=== PATIENT | male | born 1960 | race African-American/Black ===

== ENCOUNTER 2017-08-11 12:13 | Emergency (ER) | payer BC, MEDICAID ==
[~2017-08-11] VITALS: Ht 167.6 cm; Wt 67.0 kg
[2017-08-11] MEDS ORDERED: BACITRACIN ZINC OINT UDPKT TOP ONE (12:45)
[2017-08-11] MEDS ORDERED: LIDOCAINE HCL 1%/EPI 1:200,000 30 ML VIAL MC ONE (12:45)
[2017-08-11 13:57] VITALS: BP 132/64
[2017-08-14] MEDS ORDERED: NARCO (00:18)
== END 2017-08-11 14:54 | disposition home or self-care (01) ==
LOC: ER 14:27
DX: L76.21 Postprocedural hemorrhage of skin and subcutaneous tissue following a dermatologic procedure (principal); F17.200 Nicotine dependence, unspecified, uncomplicated
CPT/HCPCS: 99283; Z7610

== ENCOUNTER 2021-01-07 21:14 | Emergency (ER) | payer MEDICAID ==
[~2021-01-07] VITALS: Ht 175.3 cm; Wt 68.0 kg
[2021-01-07] MEDS ORDERED: LIDOCAINE HCL/EPINEPHRINE 1%-EPI 1:100,000 20 ML VIAL INFIL ONE (22:30)
[2021-01-07 23:40] LABS: BASOPHILS % 0.6 % (0.0-2.0); EOSINOPHILS % 0.8 % (0.0-5.0); LYMPHOCYTES % 24.6 % (20.0-50.0); MEAN CORPUSCULAR HEMOGLOBIN 28.4 pg (28.0-32.0); MEAN CORPUSCULAR VOLUME 85.7 fL (80.0-94.0); MEAN PLATELET VOLUME 6.7 fl (7.4-10.4); MONOCYTES % 11.1 % (2.0-8.0); NEUTROPHILS % 62.9 % (40.0-76.0); PLATELET 310 x1000/uL (130-400); RED BLOOD CELL COUNT 1.81 mill/uL (4.7-6.1); RED CELL DISTRIBUTION WIDTH 23.5 % (11.6-14.6)
[2021-01-07 23:57] LABS: HEMATOCRIT. 15.5 % (42.0-52.0); HEMOGLOBIN. 5.1 g/dL (14.0-18.0)
[2021-01-08 00:46] VITALS: BP 100/72
== END 2021-01-08 00:48 | disposition left against medical advice (07) ==
LOC: ER 21:14
DX: S01.511A Laceration without foreign body of lip, initial encounter (principal); D64.89 Other specified anemias; W25.XXXA Contact with sharp glass, initial encounter; Y93.89 Activity, other specified; Y92.89 Other specified places as the place of occurrence of the external cause
CPT/HCPCS: 12011; 36415; 85025; 99283; J3490; Z7610

== ENCOUNTER 2021-07-17 22:55 | Inpatient (IN) | payer OTHER ==
[~2021-07-17] VITALS: Ht 172.7 cm; Wt 42.4 kg
[~2021-07-17 22:55] MED LIST: FAMO40TA7 MT; HYDR-4009 MT; MORP60TA6 MT
[2021-07-17] MEDS ORDERED: SODIUM CHLORIDE 0.9% 1,000 ML IV ONE (23:15)
[2021-07-18 00:41] LABS: MEAN CORPUSCULAR HEMOGLOBIN 27.5 pg (28.0-32.0); MEAN CORPUSCULAR VOLUME 85.2 fL (80.0-94.0); MEAN PLATELET VOLUME 7.3 fl (7.4-10.4); PLATELET 195 x1000/uL (130-400); RED CELL DISTRIBUTION WIDTH 21.4 % (11.6-14.6)
[2021-07-18 00:49] LABS: HEMATOCRIT. 14.5 % (42.0-52.0)
[2021-07-18 00:50] LABS: HEMOGLOBIN. 4.7 g/dL (14.0-18.0)
[2021-07-18] MEDS ORDERED: LORAZEPAM 2MG/ML CPJ IV SCH (02:15)
[2021-07-18 06:07] LABS: BG BASE EXCESS 2.1 mmol/L (-2.0-2.0); BG CARBOXYHEMOGLOBIN 1.9 % (0.5-1.5); BG DEOXYHEMOGLOBIN 3.5 % (0.0-5.0); BG FRACTION INSPIRED OXYGEN 21; BG HCO3 ACT 26.6 mmol/L (22.0-26.0); BG METHEMOGLOBIN 0.3 % (0.0-1.5); BG OXYGEN SATURATION 96.4 % (92.0-98.5); BG OXYHEMOGLOBIN 94.3 % (94.0-97.0); BG PCO2 41.2 mmHg (35.0-45.0); BG PH 7.428 (7.350-7.450); BG PO2 90.3 mmHg (75.0-100.0); BG SAMPLE SITE RIGHT RADIAL; BG TOTAL HEMOGLOBIN 5.9 g/dL (12.0-18.0); BG VENT MODE ROOM AIR
[2021-07-18] MEDS ORDERED: ONDANSETRON HCL 4MG/2ML INJ IV PRN (08:45)
[2021-07-18 09:25] LABS: CLARITY URINE CLEAR (CLEAR); COLOR URINE YELLOW (YELLOW); KETONES URINE NEGATIVE (NEGATIVE); LEUKOCYTE ESTERASE URINE 2+ (NEGATIVE); NITRITE URINE NEGATIVE (NEGATIVE); OCCULT BLOOD URINE TRACE (NEGATIVE); PROTEIN URINE TRACE (NEGATIVE); SPECIFIC GRAVITY URINE 1.009 (1.005-1.030); UROBILINOGEN URINE 0.2 E.U./dL (0.2-1.0)
[2021-07-18 09:37] LABS: CHLORIDE 103 mEq/L (98-107)
[2021-07-18] MEDS: AMLODIPINE 10MG TABLET PO SCH (09:39)
[2021-07-18] MEDS: CLONIDINE 0.2MG TABLET PO PRN (09:40)
[2021-07-18 09:42] LABS: ETHANOL BLOOD < 10 mg/dL
[2021-07-18 09:48] LABS: HEMATOCRIT 17.5 % (42.0-52.0); HEMOGLOBIN 5.7 g/dL (14.0-18.0)
[2021-07-18 10:01] LABS: PLATELET ESTIMATE NORMAL
[2021-07-18 10:10] LABS: *AMPHETAMINES SCREEN URINE NEGATIVE (NEGATIVE); *BARBITURATES SCREEN URINE NEGATIVE (NEGATIVE); *BENZODIAZEPINES SCREEN URINE NEGATIVE (NEGATIVE); *COCAINE SCREEN URINE NEGATIVE (NEGATIVE)
[2021-07-18 10:11] LABS: CANNABINOID URINE SCREEN NEGATIVE (NEGATIVE); METHADONE URINE SCREEN NEGATIVE (NEGATIVE); OPIATES URINE SCREEN PRESUMTIVE POSITIVE (NEGATIVE); PHENCYCLIDINE URINE SCREEN NEGATIVE (NEGATIVE)
[2021-07-18 10:35] VITALS: BP 163/86
[2021-07-18] MEDS ORDERED: CEFTRIAXONE 1 G PREMIX 50 ML IV SCH (11:00)
[2021-07-18 12:00] VITALS: BP 163/86
[2021-07-18 13:45] LABS: HEMATOCRIT 17.1 % (42.0-52.0); HEMOGLOBIN 5.6 g/dL (14.0-18.0)
[2021-07-18] MEDS: SODIUM CHLORIDE 0.9% 1,000 ML IV SCH (15:08)
[2021-07-18 16:00] VITALS: BP 148/79
[2021-07-18] MEDS: CEFTRIAXONE 1,000 MG in DEXTROSE 5% WATER 50 ML IV SCH (16:44)
[2021-07-18] MEDS ORDERED: MORPHINE SULFATE 4 MG/ML CPJ (NOT FOR IM USE) IV PRN (17:00)
[2021-07-18] MEDS ORDERED: NALOXONE HCL 0.4MG/ML VIAL IV PRN (18:30)
[2021-07-18 20:00] VITALS: BP 137/53
[2021-07-18 23:07] VITALS: BP 151/78
[2021-07-18 23:22] VITALS: BP 141/80
[2021-07-19] VITALS (16 sets, daily range): BP systolic 130–169; BP diastolic 48–91
[2021-07-19] MEDS: MORPHINE SULFATE 2 MG/ML CPJ (NOT FOR IM USE) IV PRN ×4 (00:50→22:59)
[2021-07-19] MEDS: CLONIDINE 0.2MG TABLET PO PRN (05:38)
[2021-07-19 07:21] LABS: MEAN CORPUSCULAR HEMOGLOBIN 27.1 pg (28.0-32.0); MEAN CORPUSCULAR VOLUME 80.8 fL (80.0-94.0); MEAN PLATELET VOLUME 7.5 fl (7.4-10.4); PLATELET 222 x1000/uL (130-400); RED BLOOD CELL COUNT 2.37 mill/uL (4.7-6.1); RED CELL DISTRIBUTION WIDTH 22.7 % (11.6-14.6)
[2021-07-19] MEDS: AMLODIPINE 10MG TABLET PO SCH (08:16)
[2021-07-19] MEDS: SODIUM CHLORIDE 0.9% 1,000 ML IV SCH (08:26)
[2021-07-19 08:47] LABS: HEMATOCRIT. 19.2 % (42.0-52.0); HEMOGLOBIN. 6.4 g/dL (14.0-18.0)
[2021-07-19 12:12] LABS: PLATELET ESTIMATE NORMAL
[2021-07-19] MEDS: CEFTRIAXONE 1,000 MG in DEXTROSE 5% WATER 50 ML IV SCH (17:25)
[2021-07-19 17:28] LABS: HEMATOCRIT 19.8 % (42.0-52.0); HEMOGLOBIN 6.6 g/dL (14.0-18.0)
[2021-07-20] VITALS (7 sets, daily range): BP systolic 121–154; BP diastolic 47–93
[2021-07-20] MEDS: MORPHINE SULFATE 2 MG/ML CPJ (NOT FOR IM USE) IV PRN ×3 (05:20→14:32)
[2021-07-20] MEDS: AMLODIPINE 10MG TABLET PO SCH (09:37)
[2021-07-20 10:37] LABS: HEMATOCRIT 23.6 % (42.0-52.0)
[2021-07-20 10:39] LABS: HEMOGLOBIN 7.9 g/dL (14.0-18.0)
[2021-07-20] MEDS: ACETAMINOPHEN 325MG TABLET PO PRN (22:17)
[2021-07-20] MEDS: SODIUM CHLORIDE 0.9% 1,000 ML IV SCH (22:20)
[2021-07-21] VITALS: BP 138/88
[2021-07-21 04:00] VITALS: BP 144/97
[2021-07-21] MEDS: ACETAMINOPHEN 325MG TABLET PO PRN ×2 (06:13→16:42)
[2021-07-21 08:00] VITALS: BP 156/97
[2021-07-21] MEDS: AMLODIPINE 10MG TABLET PO SCH (09:57)
[2021-07-21 11:59] VITALS: BP 95/68
[2021-07-21 16:00] VITALS: BP 140/90
[2021-07-21] MEDS: CEFTRIAXONE 1,000 MG in DEXTROSE 5% WATER 50 ML IV SCH (16:42)
[2021-07-21] MEDS: SODIUM CHLORIDE 0.9% 1,000 ML IV SCH (19:16)
[2021-07-21 20:00] VITALS: BP 113/65
[2021-07-22] VITALS: BP 154/88
[2021-07-22 04:00] VITALS: BP 144/69
[2021-07-22 08:00] VITALS: BP 102/46
[2021-07-22] MEDS: AMLODIPINE 10MG TABLET PO SCH ×2 (08:59→09:00)
[2021-07-22 12:00] VITALS: BP 128/70
[2021-07-22] MEDS: SODIUM CHLORIDE 0.9% 1,000 ML IV SCH (14:43)
[2021-07-22] MEDS: CEFTRIAXONE 1,000 MG in DEXTROSE 5% WATER 50 ML IV SCH (15:28)
[2021-07-22 16:00] VITALS: BP 125/70
[2021-07-22 20:00] VITALS: BP 156/80
[2021-07-23] VITALS: BP 149/83
[2021-07-23 04:00] VITALS: BP 154/87
[2021-07-23 08:00] VITALS: BP 159/81
[2021-07-23] MEDS: AMLODIPINE 10MG TABLET PO SCH (08:42)
[2021-07-23 12:00] VITALS: BP 152/88
[2021-07-23 16:00] VITALS: BP 141/85
[2021-07-23] MEDS: CEFTRIAXONE 1,000 MG in DEXTROSE 5% WATER 50 ML IV SCH (17:03)
[2021-07-23] MEDS: LORAZEPAM 2MG/ML CPJ IV PRN (17:07)
[2021-07-23 20:00] VITALS: BP 136/66
[2021-07-24] VITALS: BP 138/76
[2021-07-24 04:00] VITALS: BP 139/93
[2021-07-24 08:00] VITALS: BP 142/90
[2021-07-24] MEDS: LORAZEPAM 2MG/ML CPJ IV PRN (08:21)
[2021-07-24] MEDS: AMLODIPINE 10MG TABLET PO SCH (09:00)
[2021-07-24 12:00] VITALS: BP 137/87
[2021-07-24 16:00] VITALS: BP 152/84
[2021-07-24 20:00] VITALS: BP 148/86
[2021-07-25 00:01] VITALS: BP 152/79
[2021-07-25] MEDS: LORAZEPAM 2MG/ML CPJ IV PRN (03:08)
[2021-07-25 04:00] VITALS: BP 157/91
[2021-07-25 08:00] VITALS: BP 153/91
[2021-07-25] MEDS: AMLODIPINE 10MG TABLET PO SCH (09:48)
[2021-07-25 12:00] VITALS: BP 112/59
[2021-07-25 16:00] VITALS: BP 126/60
[2021-07-25 17:03] LABS: MEAN CORPUSCULAR HEMOGLOBIN 28.1 pg (28.0-32.0); MEAN CORPUSCULAR VOLUME 80.4 fL (80.0-94.0); MEAN PLATELET VOLUME 7.2 fl (7.4-10.4); PLATELET 211 x1000/uL (130-400); RED BLOOD CELL COUNT 2.13 mill/uL (4.7-6.1); RED CELL DISTRIBUTION WIDTH 19.5 % (11.6-14.6)
[2021-07-25 17:08] LABS: CHLORIDE 108 mEq/L (98-107)
[2021-07-25 17:16] LABS: HEMATOCRIT. 17.2 % (42.0-52.0)
[2021-07-25] MEDS ORDERED: POTASSIUM CHLORIDE INJ 40 MEQ in DEXT 5% WATER 250 ML IV ONE (18:30)
[2021-07-25 18:52] LABS: PLATELET ESTIMATE NORMAL
[2021-07-25] MEDS ORDERED: POTASSIUM CHLORIDE 20MEQ TABLET SR PO NR (19:00)
[2021-07-25 20:00] VITALS: BP 117/55
[2021-07-25] MEDS: KCL 20MEQ/100ML X 2 FOR TOTAL KCL 40MEQ/200ML IV SCH (21:36)
[2021-07-26] VITALS (13 sets, daily range): BP systolic 99–139; BP diastolic 53–86
[2021-07-26] MEDS: KCL 20MEQ/100ML X 2 FOR TOTAL KCL 40MEQ/200ML IV SCH (02:01)
[2021-07-26] MEDS: AMLODIPINE 10MG TABLET PO SCH (09:00)
[2021-07-26 10:25] LABS: BASOPHILS % 0.3 % (0.0-2.0); EOSINOPHILS % 0.4 % (0.0-5.0); LYMPHOCYTES % 22.2 % (20.0-50.0); MEAN CORPUSCULAR VOLUME 85.5 fL (80.0-94.0); MEAN PLATELET VOLUME 7.2 fl (7.4-10.4); MONOCYTES % 8.6 % (2.0-8.0); NEUTROPHILS % 68.5 % (40.0-76.0); PLATELET 213 x1000/uL (130-400); RED CELL DISTRIBUTION WIDTH 20.8 % (11.6-14.6)
[2021-07-26 10:33] LABS: HEMOGLOBIN. 6.3 g/dL (14.0-18.0)
[2021-07-26] MEDS ORDERED: POTASSIUM CHLORIDE 20MEQ TABLET SR PO NR (11:30)
[2021-07-26] MEDS: METOPROLOL TARTRATE 50MG TABLET PO SCH ×2 (12:29→21:12)
[2021-07-26] MEDS: SODIUM CHLORIDE 0.9% 1,000 ML IV SCH (19:04)
[2021-07-27] VITALS (11 sets, daily range): BP systolic 128–146; BP diastolic 68–87
[2021-07-27] MEDS: SODIUM CHLORIDE 0.9% 1,000 ML IV SCH ×2 (05:18→14:45)
[2021-07-27 07:08] LABS: BASOPHILS % 0.2 % (0.0-2.0); EOSINOPHILS % 0.3 % (0.0-5.0); LYMPHOCYTES % 23.9 % (20.0-50.0); MEAN CORPUSCULAR HEMOGLOBIN 29.2 pg (28.0-32.0); MEAN CORPUSCULAR VOLUME 84.7 fL (80.0-94.0); MEAN PLATELET VOLUME 7.3 fl (7.4-10.4); MONOCYTES % 8.3 % (2.0-8.0); NEUTROPHILS % 67.3 % (40.0-76.0); PLATELET 233 x1000/uL (130-400); RED BLOOD CELL COUNT 2.26 mill/uL (4.7-6.1); RED CELL DISTRIBUTION WIDTH 19.9 % (11.6-14.6)
[2021-07-27 07:10] LABS: INR 1.4; PARTIAL THROMBOPLASTIN TIME 31.3 sec (23.4-31.0); PROTHROMBIN TIME 14.7 sec (9.6-11.0)
[2021-07-27 07:52] LABS: HEMATOCRIT. 19.1 % (42.0-52.0); HEMOGLOBIN. 6.6 g/dL (14.0-18.0)
[2021-07-27] MEDS: ACETAMINOPHEN 325MG TABLET PO PRN ×2 (09:46→12:21)
[2021-07-27] MEDS: METOPROLOL TARTRATE 50MG TABLET PO SCH ×2 (09:47→21:04)
[2021-07-27] MEDS: AMLODIPINE 10MG TABLET PO SCH (09:48)
== END 2021-07-27 21:36 | disposition hospice, home (50) | DRG 663 ==
LOC: ER 22:55 → EDBEDREQSVC 07-18 04:15 → EDBEDREQTM 07-18 04:15 → EDBEDREQDT 07-18 04:15 → EDBEDREQ 07-18 04:15 → ENRESERV 07-18 09:05 → 7EST 07-18 10:32
PROVIDERS: ADMIT Internal Medicine; ATTEND Internal Medicine
PROC: 30233N1 Transfusion of Nonautologous Red Blood Cells into Peripheral Vein, Percutaneous Approach (ICD-10-PCS; principal; 2021-07-18)
DX: D64.9 Anemia, unspecified (principal); N17.0 Acute kidney failure with tubular necrosis; E43 Unspecified severe protein-calorie malnutrition; C90.00 Multiple myeloma not having achieved remission; E87.1 Hypo-osmolality and hyponatremia; S20.219A Contusion of unspecified front wall of thorax, initial encounter; I10 Essential (primary) hypertension; N39.0 Urinary tract infection, site not specified; X58.XXXA Exposure to other specified factors, initial encounter; Y92.238 Other place in hospital as the place of occurrence of the external cause; Y93.89 Activity, other specified; Y99.8 Other external cause status; Z68.1 Body mass index [BMI] 19.9 or less, adult
CPT/HCPCS: 36415; 36600; 71045; 80048; 80053; 80305; 80320; 81003; 82375; 82805; 83605; 83735; 84484; 85014; 85018; 85025; 86850; 86900; 86920; 93970; 99291; J0696; J2060; J2270; J2405; J3480; J7030; J7060; P9016; G0480

== ENCOUNTER 2022-04-10 20:35 | Inpatient (IN) | payer OTHER ==
[~2022-04-10] VITALS: Ht 188 cm; Wt 47.8 kg
[2022-04-10] MEDS ORDERED: PIPERACILLIN/TAZ 3.375G PREMIX 50 ML IV ONE (21:15)
[2022-04-10] MEDS ORDERED: SODIUM CHLORIDE 0.9% 1000ML BAG (SEPSIS BOLUS) IV ONE (21:15)
[2022-04-10] MEDS ORDERED: VANCOMYCIN 1G PREMIX 200 ML IV ONE (21:15)
[2022-04-10] MEDS ORDERED: NOREPINEPHRINE 8MG/250ML PMX 250 ML IV STA (21:49)
[2022-04-10 21:53] LABS: CHLORIDE 105 mEq/L (98-107)
[2022-04-10] MEDS ORDERED: NOREPINEPHRINE 8 MG in DEXTROSE 5% WATER 250 ML IV PRN (22:00)
[2022-04-10 22:06] LABS: MEAN CORPUSCULAR HEMOGLOBIN 29.5 pg (28.0-32.0); MEAN CORPUSCULAR VOLUME 111.4 fL (80.0-94.0); PLATELET 368 x1000/uL (130-400); RED BLOOD CELL COUNT 0.96 mill/uL (4.7-6.1); RED CELL DISTRIBUTION WIDTH 23.9 % (11.6-14.6)
[2022-04-10 22:14] LABS: HEMATOCRIT. 10.7 % (42.0-52.0); HEMOGLOBIN. 2.8 g/dL (14.0-18.0)
[2022-04-11 02:46] LABS: PLATELET ESTIMATE NORMAL
[2022-04-11 04:14] LABS: HEMOGLOBIN 4.3 g/dL (14.0-18.0)
[2022-04-11 04:15] LABS: HEMATOCRIT 13.4 % (42.0-52.0)
[2022-04-11 12:11] LABS: BG BASE EXCESS -6.1 mmol/L (-2.0-2.0); BG CARBOXYHEMOGLOBIN 0.3 % (0.5-1.5); BG DEOXYHEMOGLOBIN 2.2 % (0.0-5.0); BG FRACTION INSPIRED OXYGEN 21; BG HCO3 ACT 17.5 mmol/L (22.0-26.0); BG METHEMOGLOBIN 0.3 % (0.0-1.5); BG OXYGEN SATURATION 97.8 % (92.0-98.5); BG OXYHEMOGLOBIN 97.2 % (94.0-97.0); BG PCO2 28.3 mmHg (35.0-45.0); BG PO2 103.7 mmHg (75.0-100.0); BG SAMPLE SITE RIGHT RADIAL; BG TOTAL HEMOGLOBIN 9.9 g/dL (12.0-18.0); BG VENT MODE ROOM AIR
[2022-04-11 13:38] LABS: BASOPHILS % 0.1 % (0.0-2.0); HEMATOCRIT. 25.9 % (42.0-52.0); HEMOGLOBIN. 8.8 g/dL (14.0-18.0); LYMPHOCYTES % 13.4 % (20.0-50.0); MEAN CORPUSCULAR VOLUME 91.5 fL (80.0-94.0); MEAN PLATELET VOLUME 6.7 fl (7.4-10.4); MONOCYTES % 6.9 % (2.0-8.0); NEUTROPHILS % 79.6 % (40.0-76.0); PLATELET 192 x1000/uL (130-400); RED BLOOD CELL COUNT 2.83 mill/uL (4.7-6.1); RED CELL DISTRIBUTION WIDTH 14.7 % (11.6-14.6)
[2022-04-11 13:48] LABS: INR 1.5; PARTIAL THROMBOPLASTIN TIME 52.1 sec (23.4-31.0); PROTHROMBIN TIME 15.2 sec (9.6-11.0)
[2022-04-11 13:54] LABS: CHLORIDE 112 mEq/L (98-107)
[2022-04-11 14:02] LABS: PHOSPHORUS 4.4 mg/dL (2.5-4.9)
[2022-04-11] MEDS: DEXT 5%/0.45% NACL 1000ML 1,000 ML IV SCH (17:22)
[2022-04-11] MEDS ORDERED: IOHEXOL-350 100 ML BOTTLE ONE (19:29)
[2022-04-11] MEDS ORDERED: THROMBIN (BOVINE) 5000 UNITS/VIAL TOP ONE (20:30)
[2022-04-11] MEDS: VASOPRESSIN 20 UNITS in SODIUM CHLORIDE 0.9% 100 ML IV PRN (20:58)
[2022-04-11] MEDS ORDERED: THROMBIN (BOVINE) 5000 UNITS/VIAL TOP NR (21:00)
[2022-04-11] MEDS ORDERED: LIDOCAINE HCL 1% 10 MG/ML 10ML VIAL ONE (21:00)
[2022-04-11] MEDS: MORPHINE SULFATE 2 MG/ML CPJ (NOT FOR IM USE) IV PRN (23:10)
[2022-04-12] VITALS (28 sets, daily range): BP systolic 91–136; BP diastolic 23–97
[2022-04-12 00:20] LABS: HEMOGLOBIN 6.8 g/dL (14.0-18.0)
[2022-04-12 00:21] LABS: HEMATOCRIT 20.5 % (42.0-52.0)
[2022-04-12] MEDS: PHENYLEPHRINE 100 MG in DEXT 5% WATER 240 ML IV PRN ×2 (03:20→15:44)
[2022-04-12 03:34] LABS: CLARITY URINE CLEAR (CLEAR); COLOR URINE YELLOW (YELLOW); KETONES URINE NEGATIVE (NEGATIVE); LEUKOCYTE ESTERASE URINE 1+ (NEGATIVE); NITRITE URINE NEGATIVE (NEGATIVE); OCCULT BLOOD URINE TRACE (NEGATIVE); PH URINE 5.5 (4.5-8.0); PROTEIN URINE NEGATIVE (NEGATIVE); UROBILINOGEN URINE 0.2 E.U./dL (0.2-1.0)
[2022-04-12] MEDS: MORPHINE SULFATE 2 MG/ML CPJ (NOT FOR IM USE) IV PRN ×2 (03:47→20:00)
[2022-04-12 03:51] LABS: HEMOGLOBIN 5.1 g/dL (14.0-18.0)
[2022-04-12 03:52] LABS: HEMATOCRIT 15.6 % (42.0-52.0)
[2022-04-12 03:55] LABS: *AMPHETAMINES SCREEN URINE NEGATIVE (NEGATIVE); *BARBITURATES SCREEN URINE NEGATIVE (NEGATIVE); *BENZODIAZEPINES SCREEN URINE NEGATIVE (NEGATIVE); *COCAINE SCREEN URINE NEGATIVE (NEGATIVE); CANNABINOID URINE SCREEN PRESUMTIVE POSITIVE (NEGATIVE); METHADONE URINE SCREEN PRESUMTIVE POSITIVE (NEGATIVE); OPIATES URINE SCREEN PRESUMTIVE POSITIVE (NEGATIVE); PHENCYCLIDINE URINE SCREEN NEGATIVE (NEGATIVE)
[2022-04-12] MEDS: DEXT 5%/0.45% NACL 1000ML 1,000 ML IV SCH ×2 (06:20→19:40)
[2022-04-12 08:57] LABS: CHLORIDE 109 mEq/L (98-107)
[2022-04-12] MEDS ORDERED: CEFTRIAXONE 1 G PREMIX 50 ML IV SCH (09:00)
[2022-04-12 09:02] LABS: INR 1.4; PROTHROMBIN TIME 14.6 sec (9.6-11.0)
[2022-04-12 09:06] LABS: BASOPHILS % 0.2 % (0.0-2.0); EOSINOPHILS % 0.1 % (0.0-5.0); LYMPHOCYTES % 12.7 % (20.0-50.0); MEAN CORPUSCULAR HEMOGLOBIN 30.6 pg (28.0-32.0); MEAN CORPUSCULAR VOLUME 91.1 fL (80.0-94.0); MEAN PLATELET VOLUME 7.7 fl (7.4-10.4); MONOCYTES % 8.5 % (2.0-8.0); NEUTROPHILS % 78.5 % (40.0-76.0); PLATELET 133 x1000/uL (130-400); RED BLOOD CELL COUNT 1.83 mill/uL (4.7-6.1); RED CELL DISTRIBUTION WIDTH 14.6 % (11.6-14.6)
[2022-04-12 09:09] LABS: HEMATOCRIT. 16.7 % (42.0-52.0); HEMOGLOBIN. 5.6 g/dL (14.0-18.0)
[2022-04-12] MEDS ORDERED: IOHEXOL-300 100 ML BOTTLE ONE ×2 (09:51→12:03)
[2022-04-12] MEDS ORDERED: LIDOCAINE HCL 1% 10 MG/ML 10ML VIAL ONE (09:51)
[2022-04-12] MEDS ORDERED: MIDAZOLAM HCL 5 MG/5 ML VIAL ONE (10:19)
[2022-04-12] MEDS ORDERED: FENTANYL CITRATE/PF 50MCG/ML 2ML VIAL ONE (10:19)
[2022-04-12] MEDS ORDERED: KETAMINE HCL 50 MG/ML 10ML IV NR (10:30)
[2022-04-12] MEDS ORDERED: PHENYLEPHRINE HCL 10 MG/ML 1ML (IV VIAL) IV ONE (10:30)
[2022-04-12] MEDS ORDERED: DIPHENHYDRAMINE 50MG/ML VIAL ONE (11:01)
[2022-04-12] MEDS ORDERED: DOPAMINE 400MG/250ML PREMIX 250 ML IV PRN (16:15)
[2022-04-12] MEDS ORDERED: ATROPINE SULFATE 1MG/ML VIAL IV PRN (16:15)
[2022-04-12 16:23] LABS: HEMATOCRIT 24.5 % (42.0-52.0); HEMOGLOBIN 8.1 g/dL (14.0-18.0)
[2022-04-12] MEDS ORDERED: NALOXONE HCL 0.4MG/ML VIAL IV PRN (16:30)
[2022-04-12] MEDS: VASOPRESSIN 20 UNITS in SODIUM CHLORIDE 0.9% 100 ML IV PRN (19:30)
[2022-04-13] VITALS (61 sets, daily range): BP systolic 60–154; BP diastolic 38–82
[2022-04-13] MEDS: MORPHINE SULFATE 2 MG/ML CPJ (NOT FOR IM USE) IV PRN ×2 (00:56→08:27)
[2022-04-13] MEDS: VASOPRESSIN 20 UNITS in SODIUM CHLORIDE 0.9% 100 ML IV PRN ×2 (02:46→15:16)
[2022-04-13] MEDS: PHENYLEPHRINE 100 MG in DEXT 5% WATER 240 ML IV PRN ×2 (02:46→15:16)
[2022-04-13] MEDS: CEFTRIAXONE 1,000 MG in DEXTROSE 5% WATER 50 ML IV SCH (05:03)
[2022-04-13 05:39] LABS: BASOPHILS % 0.3 % (0.0-2.0); EOSINOPHILS % 0.2 % (0.0-5.0); LYMPHOCYTES % 10.1 % (20.0-50.0); MEAN CORPUSCULAR HEMOGLOBIN 29.8 pg (28.0-32.0); MEAN CORPUSCULAR VOLUME 87.8 fL (80.0-94.0); MEAN PLATELET VOLUME 7.4 fl (7.4-10.4); MONOCYTES % 6.6 % (2.0-8.0); NEUTROPHILS % 82.8 % (40.0-76.0); PLATELET 97 x1000/uL (130-400); RED BLOOD CELL COUNT 2.26 mill/uL (4.7-6.1); RED CELL DISTRIBUTION WIDTH 18.2 % (11.6-14.6)
[2022-04-13 05:56] LABS: CHLORIDE 110 mEq/L (98-107)
[2022-04-13 06:29] LABS: HEMOGLOBIN. 6.7 g/dL (14.0-18.0)
[2022-04-13 06:30] LABS: HEMATOCRIT. 19.9 % (42.0-52.0)
[2022-04-13] MEDS: DEXT 5%/0.45% NACL 1000ML 1,000 ML IV SCH ×2 (09:00→21:04)
[2022-04-13] MEDS: MIDODRINE HCL 5MG TABLET PO SCH ×3 (11:15→17:00)
[2022-04-13] MEDS: METHADONE HCL 5MG TABLET PO SCH ×2 (13:00→21:03)
[2022-04-13] MEDS: MORPHINE SULFATE 10MG/5ML ORAL SOLN UDC PO PRN ×2 (14:42→22:20)
[2022-04-13 20:45] LABS: BASOPHILS % 0.2 % (0.0-2.0); EOSINOPHILS % 0.5 % (0.0-5.0); HEMATOCRIT. 21.7 % (42.0-52.0); HEMOGLOBIN. 7.4 g/dL (14.0-18.0); LYMPHOCYTES % 11.4 % (20.0-50.0); MEAN CORPUSCULAR HEMOGLOBIN 30.2 pg (28.0-32.0); MEAN CORPUSCULAR VOLUME 88.3 fL (80.0-94.0); MEAN PLATELET VOLUME 7.1 fl (7.4-10.4); MONOCYTES % 5.4 % (2.0-8.0); NEUTROPHILS % 82.5 % (40.0-76.0); PLATELET 101 x1000/uL (130-400); RED BLOOD CELL COUNT 2.46 mill/uL (4.7-6.1); RED CELL DISTRIBUTION WIDTH 17.1 % (11.6-14.6)
[2022-04-14] VITALS (91 sets, daily range): BP systolic 78–162; BP diastolic 27–110
[2022-04-14] MEDS: CEFTRIAXONE 1,000 MG in DEXTROSE 5% WATER 50 ML IV SCH (05:07)
[2022-04-14 06:04] LABS: CHLORIDE 107 mEq/L (98-107)
[2022-04-14 07:20] LABS: BASOPHILS % 0.1 % (0.0-2.0); EOSINOPHILS % 0.3 % (0.0-5.0); HEMATOCRIT. 25.2 % (42.0-52.0); HEMOGLOBIN. 8.6 g/dL (14.0-18.0); LYMPHOCYTES % 8.4 % (20.0-50.0); MEAN CORPUSCULAR HEMOGLOBIN 30.6 pg (28.0-32.0); MEAN CORPUSCULAR VOLUME 89.5 fL (80.0-94.0); MEAN PLATELET VOLUME 7.6 fl (7.4-10.4); MONOCYTES % 5.7 % (2.0-8.0); NEUTROPHILS % 85.5 % (40.0-76.0); PLATELET 116 x1000/uL (130-400); RED BLOOD CELL COUNT 2.81 mill/uL (4.7-6.1); RED CELL DISTRIBUTION WIDTH 17.3 % (11.6-14.6)
[2022-04-14] MEDS: METHADONE HCL 5MG TABLET PO SCH ×2 (09:46→21:25)
[2022-04-14] MEDS: MIDODRINE HCL 5MG TABLET PO SCH ×4 (09:47→21:26)
[2022-04-14] MEDS: DEXT 5%/0.45% NACL 1000ML 1,000 ML IV SCH (12:49)
[2022-04-14] MEDS: AZITHROMYCIN 500 MG in DEXT 5% WATER 250 ML IV SCH (13:25)
[2022-04-14] MEDS: PHENYLEPHRINE 100 MG in DEXT 5% WATER 240 ML IV PRN (14:01)
[2022-04-15] VITALS (99 sets, daily range): BP systolic 64–151; BP diastolic 28–105
[2022-04-15] MEDS: DEXT 5%/0.45% NACL 1000ML 1,000 ML IV SCH ×2 (01:00→13:26)
[2022-04-15 05:16] LABS: BASOPHILS % 0.1 % (0.0-2.0); EOSINOPHILS % 0.3 % (0.0-5.0); HEMATOCRIT. 24.7 % (42.0-52.0); HEMOGLOBIN. 8.3 g/dL (14.0-18.0); LYMPHOCYTES % 10.1 % (20.0-50.0); MEAN CORPUSCULAR HEMOGLOBIN 30.1 pg (28.0-32.0); MEAN CORPUSCULAR VOLUME 89.1 fL (80.0-94.0); MEAN PLATELET VOLUME 6.9 fl (7.4-10.4); MONOCYTES % 7.4 % (2.0-8.0); NEUTROPHILS % 82.1 % (40.0-76.0); PLATELET 167 x1000/uL (130-400); RED BLOOD CELL COUNT 2.77 mill/uL (4.7-6.1); RED CELL DISTRIBUTION WIDTH 17.6 % (11.6-14.6)
[2022-04-15 05:37] LABS: CHLORIDE 107 mEq/L (98-107)
[2022-04-15] MEDS: MIDODRINE HCL 5MG TABLET PO SCH ×6 (06:00→22:00)
[2022-04-15] MEDS: CEFTRIAXONE 1,000 MG in DEXTROSE 5% WATER 50 ML IV SCH (06:53)
[2022-04-15] MEDS ORDERED: POTASSIUM CHLORIDE 20MEQ TABLET SR PO NR ×2 (09:41→10:00)
[2022-04-15] MEDS: AZITHROMYCIN 500 MG in DEXT 5% WATER 250 ML IV SCH (09:44)
[2022-04-15] MEDS: METHADONE HCL 5MG TABLET PO SCH ×2 (09:44→21:50)
[2022-04-15] MEDS ORDERED: LIDOCAINE HCL 1% 30ML VIAL (10MG/ML) ONE (13:18)
[2022-04-16] VITALS (60 sets, daily range): BP systolic 68–152; BP diastolic 18–78
[2022-04-16] MEDS: DEXT 5%/0.45% NACL 1000ML 1,000 ML IV SCH ×2 (04:00→17:12)
[2022-04-16] MEDS: CEFTRIAXONE 1,000 MG in DEXTROSE 5% WATER 50 ML IV SCH (05:34)
[2022-04-16] MEDS: MIDODRINE HCL 5MG TABLET PO SCH ×3 (05:36→17:12)
[2022-04-16] MEDS: AZITHROMYCIN 500 MG in DEXT 5% WATER 250 ML IV SCH (08:25)
[2022-04-16] MEDS: METHADONE HCL 5MG TABLET PO SCH ×2 (08:27→21:24)
[2022-04-16 09:26] LABS: BASOPHILS % 0.3 % (0.0-2.0); EOSINOPHILS % 0.8 % (0.0-5.0); HEMATOCRIT. 22.1 % (42.0-52.0); HEMOGLOBIN. 7.4 g/dL (14.0-18.0); LYMPHOCYTES % 10.9 % (20.0-50.0); MEAN CORPUSCULAR HEMOGLOBIN 29.9 pg (28.0-32.0); MEAN CORPUSCULAR VOLUME 89.5 fL (80.0-94.0); MEAN PLATELET VOLUME 7.3 fl (7.4-10.4); MONOCYTES % 9.2 % (2.0-8.0); NEUTROPHILS % 78.8 % (40.0-76.0); PLATELET 238 x1000/uL (130-400); RED BLOOD CELL COUNT 2.47 mill/uL (4.7-6.1); RED CELL DISTRIBUTION WIDTH 17.6 % (11.6-14.6)
[2022-04-16 09:45] LABS: CHLORIDE 108 mEq/L (98-107)
[2022-04-16] MEDS ORDERED: POTASSIUM CHLORIDE 20MEQ TABLET SR PO NR (10:30)
[2022-04-17] VITALS (73 sets, daily range): BP systolic 65–170; BP diastolic 17–123
[2022-04-17] MEDS: CEFTRIAXONE 1,000 MG in DEXTROSE 5% WATER 50 ML IV SCH (05:39)
[2022-04-17 06:13] LABS: CHLORIDE 105 mEq/L (98-107)
[2022-04-17 06:16] LABS: BASOPHILS % 0.3 % (0.0-2.0); EOSINOPHILS % 1.3 % (0.0-5.0); HEMATOCRIT. 22.9 % (42.0-52.0); HEMOGLOBIN. 7.7 g/dL (14.0-18.0); LYMPHOCYTES % 17.4 % (20.0-50.0); MEAN CORPUSCULAR HEMOGLOBIN 30.1 pg (28.0-32.0); MONOCYTES % 11.1 % (2.0-8.0); NEUTROPHILS % 69.9 % (40.0-76.0); PLATELET 361 x1000/uL (130-400); RED BLOOD CELL COUNT 2.57 mill/uL (4.7-6.1); RED CELL DISTRIBUTION WIDTH 18.2 % (11.6-14.6)
[2022-04-17] MEDS: AZITHROMYCIN 500 MG in DEXT 5% WATER 250 ML IV SCH (08:00)
[2022-04-17] MEDS: MIDODRINE HCL 5MG TABLET PO SCH ×3 (08:00→18:45)
[2022-04-17] MEDS: DEXT 5%/0.45% NACL 1000ML 1,000 ML IV SCH ×2 (08:00→20:41)
[2022-04-17] MEDS: METHADONE HCL 5MG TABLET PO SCH ×2 (08:01→20:42)
[2022-04-17] MEDS ORDERED: MAGNESIUM/ALUMINUM HYDROXIDE/SIMETHICONE 30ML UDC PO PRN (09:00)
[2022-04-17] MEDS: OMEPRAZOLE 20MG CAPSULE EXTENDED RELEASE PO SCH (09:00)
[2022-04-17] MEDS ORDERED: POTASSIUM CHLORIDE 20MEQ TABLET SR PO NR (09:00)
[2022-04-18] VITALS (23 sets, daily range): BP systolic 60–125; BP diastolic 20–102
[2022-04-18] MEDS: OMEPRAZOLE 20MG CAPSULE EXTENDED RELEASE PO SCH (06:52)
[2022-04-18] MEDS: AZITHROMYCIN 500 MG in DEXT 5% WATER 250 ML IV SCH (08:45)
[2022-04-18] MEDS: DEXT 5%/0.45% NACL 1000ML 1,000 ML IV SCH ×2 (08:45→21:24)
[2022-04-18] MEDS: MIDODRINE HCL 5MG TABLET PO SCH ×3 (08:46→17:39)
[2022-04-18] MEDS: METHADONE HCL 5MG TABLET PO SCH (10:25)
[2022-04-19] MEDS: OMEPRAZOLE 20MG CAPSULE EXTENDED RELEASE PO SCH (06:41)
[2022-04-19 08:00] VITALS: BP_SYST 198; BP_SYST 91; BP_DIAS 169; BP_DIAS 48
[2022-04-19] MEDS: MIDODRINE HCL 5MG TABLET PO SCH ×3 (08:19→16:27)
[2022-04-19] MEDS: DEXT 5%/0.45% NACL 1000ML 1,000 ML IV SCH (11:31)
[2022-04-19 12:00] VITALS: BP_SYST 106; BP_SYST 98; BP_DIAS 58
[2022-04-19] MEDS ORDERED: MORPHINE SULFATE 4 MG/ML CPJ (NOT FOR IM USE) IV PRN (12:30)
[2022-04-19] MEDS ORDERED: POTASSIUM CHLORIDE 20MEQ TABLET SR PO SCH (12:30)
[2022-04-19] MEDS ORDERED: NALOXONE HCL 0.4MG/ML VIAL IV PRN (12:45)
[2022-04-19] MEDS ORDERED: POTASSIUM CHLORIDE 20MEQ/PACKET PO ONE (14:15)
[2022-04-19] MEDS ORDERED: MORPHINE SULFATE 10MG/5ML ORAL SOLN UDC PO PRN (15:30)
[2022-04-19 16:00] VITALS: BP 105/58
[2022-04-19 20:00] VITALS: BP 97/56
[2022-04-20] VITALS: BP 107/61
[2022-04-20] MEDS: DEXT 5%/0.45% NACL 1000ML 1,000 ML IV SCH ×2 (01:00→14:08)
[2022-04-20 04:00] VITALS: BP 106/61
[2022-04-20] MEDS: OMEPRAZOLE 20MG CAPSULE EXTENDED RELEASE PO SCH (06:44)
[2022-04-20 08:00] VITALS: BP 107/70
[2022-04-20] MEDS: MIDODRINE HCL 5MG TABLET PO SCH ×3 (08:45→17:00)
[2022-04-20 12:00] VITALS: BP 116/69
[2022-04-20 16:00] VITALS: BP 115/58
[2022-04-20 20:00] VITALS: BP 105/54
== END 2022-04-20 22:00 | disposition left against medical advice (07) | DRG 792 ==
LOC: ER 20:35 → MICUSO 23:33 → EDBEDREQTM 23:35 → EDBEDREQSVC 23:35 → EDBEDREQ 23:35 → CVICU 04-12 13:29 → 7EST 04-18 19:02
PROVIDERS: ADMIT Internal Medicine; ATTEND Internal Medicine
PROC: 06HY33Z Insertion of Infusion Device into Lower Vein, Percutaneous Approach (ICD-10-PCS; 2022-04-10)
PROC: B54BZZA Ultrasonography of Right Lower Extremity Veins, Guidance (ICD-10-PCS; 2022-04-10)
PROC: 30233N1 Transfusion of Nonautologous Red Blood Cells into Peripheral Vein, Percutaneous Approach (ICD-10-PCS; 2022-04-11)
PROC: 03L43DZ Occlusion of Left Subclavian Artery with Intraluminal Device, Percutaneous Approach (ICD-10-PCS; principal; 2022-04-12)
PROC: 03L Upper Arteries, Occlusion (ICD-10-PCS; 2022-04-12)
PROC: 30233K1 Transfusion of Nonautologous Frozen Plasma into Peripheral Vein, Percutaneous Approach (ICD-10-PCS; 2022-04-12)
DX: I97.620 Postprocedural hemorrhage of a circulatory system organ or structure following other procedure (principal); R57.8 Other shock; A41.9 Sepsis, unspecified organism; E43 Unspecified severe protein-calorie malnutrition; R64 Cachexia; J18.9 Pneumonia, unspecified organism; C79.51 Secondary malignant neoplasm of bone; L76.22 Postprocedural hemorrhage of skin and subcutaneous tissue following other procedure; C90.00 Multiple myeloma not having achieved remission; I10 Essential (primary) hypertension; D64.9 Anemia, unspecified; I89.0 Lymphedema, not elsewhere classified; Z20.822 Contact with and (suspected) exposure to COVID-19; N39.0 Urinary tract infection, site not specified; Z53.29 Procedure and treatment not carried out because of patient's decision for other reasons; Z79.899 Other long term (current) drug therapy; Z68.1 Body mass index [BMI] 19.9 or less, adult; Y84.9 Medical procedure, unspecified as the cause of abnormal reaction of the patient, or of later complication, without mention of misadventure at the time of the procedure
CPT/HCPCS: 36415; 36600; 71045; 73206; 75774; 75898; 76604; 76937; 77002; 80048; 80053; 80305; 81003; 82375; 82805; 82962; 83605; 83735; 83880; 84100; 84145; 84484; 85014; 85018; 85025; 85384; 86850; 86900; 86920; 86927; 87804; 93005; 99291; C1725; C1757; C1769; J0456; J0696; J1200; J1265; J1644; J2250; J2270; J2370; J2543; J3010; J3370; J3490; J7030; J7050; J7060; P9016; P9017; Q9967; U0003; U0005; A4315